=== PATIENT | female | born 1995 | race Caucasian/White ===

== ENCOUNTER 2017-08-30 17:53 | Emergency (ER) | payer BC ==
[2017-08-30 19:24] VITALS: BP 134/85
--- NOTE | 2017-08-30 19:54 | UC ---
UC General HPI - HPI Summary HPI Summary: pt states went for a hike at [place] about 3 weeks ago. 2 weeks ago she noted a rash on her R side that is a little itchy. no fever or joint pain. denies hx of tick bite. - History of Current Complaint Chief Complaint: [place] Stated Complaint: RASH Time Seen by Provider: 08/30/17 19:47 Hx Obtained From: Patient Hx Last Menstrual Period: 08/16/17 Onset/Duration: Gradual Onset Timing: Constant Pain Intensity: 0 Aggravating: nothing Alleviating: nothing Associated Signs & Symptoms: Negative: Fever - Allergy/Home Medications Allergies/Adverse Reactions: Allergies Allergy/AdvReac Type Severity Reaction Status Date / Time No Known Allergies Allergy Verified 08/30/17 19:24 Home Medications: Home Medications Norethindrone AC-Eth Estradiol [Microgestin 04/23 1-20 mg-Mcg] 1 tab PO BEDTIME 08/30/17 [History Confirmed 08/30/17] PMH/Surg Hx/FS Hx/Imm Hx Previously Healthy: Yes - Surgical History Surgical History: None - Family History Known Family History: Positive: None - Social History Lives: With Family Alcohol Use: Occasionally Substance Use Type: None Smoking Status (MU): Never Smoked Tobacco Review of Systems Constitutional: Negative Skin: Rash Eyes: Negative ENT: Negative Respiratory: Negative Cardiovascular: Negative Gastrointestinal: Negative Genitourinary: Negative Motor: Negative Neurovascular: Negative Musculoskeletal: Negative Neurological: Negative Psychological: Negative Is Patient Immunocompromised?: No All Other Systems Reviewed And Are Negative: Yes Physical Exam Triage Information Reviewed: Yes Appearance: Well-Appearing Vital Signs: Initial Vital Signs Temp 99.2 F 08/30/17 19:14 Pulse 76 08/30/17 19:14 Resp 14 08/30/17 19:14 BP 134/85 08/30/17 19:14 Pulse Ox 99 08/30/17 19:14 Vital Signs Reviewed: Yes Eyes: Positive: Conjunctiva Clear ENT: Positive: Normal ENT inspection Neck: Positive: Supple, Nontender, No Lymphadenopathy Respiratory: Positive: Lungs clear, Normal breath sounds Cardiovascular: Positive: RRR, No Murmur Abdomen Description: Positive: Nontender, No Organomegaly, Soft Bowel Sounds: Positive: Present Musculoskeletal: Positive: ROM Intact Neurological: Positive: Alert Psychological: Positive: Age Appropriate Behavior Skin Exam: Normal, Other - 2cm oval pink rash with central clearing and fine scale to surface. no bullseye. Course/Dx - Course Course Of Treatment: not typical of erythema migrans but given hx, will test for lyme p[darinel cover for possible fungal infection. need for close f/u stressed. - Differential Dx - Multi-Symptom Provider Diagnoses: acute rash R side of chest Discharge - Sign-Out/Discharge Documenting (check all that apply): Discharge/Admit/Transfer - Discharge Plan Condition: Stable Disposition: HOME Referrals: Mi Luong MD [Primary Care Provider] - 1 Week - Billing Disposition and Condition Condition: STABLE Disposition: HOME
== END 2017-08-30 20:33 | disposition home or self-care (01) ==
LOC: UCCORT 17:53
DX: R21 Rash and other nonspecific skin eruption (principal)
CPT/HCPCS: 86618; 99201; G0463